=== PATIENT | male | born 1950 | race Hispanic/Latino ===

== ENCOUNTER → 2018-05-29 | Outpatient (CLI) | payer MEDICARE ==
[~2018-05-29] MED LIST: FOLIC ACID1 MG PO; HUMIRA40 MG/0.8 SC; METHOTREXATE2.5 MG PO; PREDNISONE10 MG PO; PREDNISONE5 MG PO; ULTRAM 50MG50 MG PO; VITAMIN D31000 UNI1 PO
--- NOTE | 2018-05-29 16:36 | Diagnostic Imaging Report ---
EXAM: CT Chest WITHOUT contrast INDICATION: \[id number] \[id number] \S\SMOKER COMPARISON: None TECHNIQUE: Chest was scanned utilizing a multidetector helical scanner from the lung apex through the level of the adrenal glands without administration of IV contrast. Absence of intravenous contrast decreases sensitivity for detection of lymphadenopathy and vascular pathology. Coronal and sagittal reformations were obtained. Routine protocol was performed. IV CONTRAST: None COMPLICATIONS: None RADIATION DOSE: Total DLP: 503.68 mGy*cm Estimated effective dose: (DLP x 0.014 x size factor) mSv CTDIvol has been reviewed. It is below the limits set by the Radiation Protocol Committee (RPC). FINDINGS: LINES/ TUBES: None. LUNGS AND AIRWAYS: The lungs are unremarkable. Bibasilar atelectasis/scarring. 3 mm right middle lobe nodule (series 3, image 101). Airways are normal. PLEURA: The pleural spaces are clear. HEART AND MEDIASTINUM: The thyroid gland is heterogeneous. No mediastinal, hilar or axillary lymphadenopathy. Multiple predominantly subcentimeter nonspecific mediastinal lymph nodes are visualized, the largest in the right paratracheal region measures 1.1 cm (series 2, image 40). There are also subcentimeter nonspecific bilateral axillary lymph nodes. The heart is normal in size.. There is no pericardial effusion. Mild atherosclerotic calcification of aorta and coronary arteries. Main pulmonary artery measures 3 cm. UPPER ABDOMEN: Left hepatic lobe calcified granuloma and 1.3 cm hypodensity, which cannot be fully characterized on this unenhanced study. BONES: Posterior left second rib sclerotic focus (series 2, image 13), likely a bone island. Degenerative changes of thoracic spine. SOFT TISSUES: Unremarkable. IMPRESSION: 1. 3 mm right middle lobe nodule. Recommend follow-up in 12 months to ensure stability, considering history of smoking. 2. Left hepatic lobe hypodensity is probably a cyst. If clinically indicated, right upper quadrant ultrasound can be obtained to confirm. 3. Heterogeneous thyroid gland with possible underlying nodularity can be further assessed with thyroid ultrasound. Signed by: Dr. Abdullahi Harvey MD on 05/29/2018 4:33 PM
== END ==
LOC: RAD 12:55
PROVIDERS: ATTEND Family Medicine
DX: F17.210 Nicotine dependence, cigarettes, uncomplicated (principal); R91.8 Other nonspecific abnormal finding of lung field
CPT/HCPCS: 71250

== ENCOUNTER → 2020-04-10 | Outpatient (CLI) | payer MEDICARE ==
--- NOTE | 2020-04-10 10:25 | Diagnostic Imaging Report ---
EXAM: CT Chest WITHOUT contrast INDICATION: ^SMOKER COMPARISON: 05/29/2008. TECHNIQUE: Chest was scanned utilizing a multidetector helical scanner from the lung apex through the level of the adrenal glands without administration of IV contrast. Absence of intravenous contrast decreases sensitivity for detection of lymphadenopathy and vascular pathology. Coronal and sagittal reformations were obtained. Routine protocol was performed. IV CONTRAST: None COMPLICATIONS: None RADIATION DOSE: Total DLP: 577 mGy*cm Estimated effective dose: (DLP x 0.014 x size factor) mSv CTDIvol has been reviewed. It is below the limits set by the Radiation Protocol Committee (RPC). Dose modulation, iterative reconstruction, and/or weight based adjustment of the mA/kV was utilized to reduce the radiation dose to as low as reasonably achievable. FINDINGS: LINES/ TUBES: None. LUNGS AND AIRWAYS: Scattered lung scarring is unchanged when compared to the previous study from 2017. Small right middle lobe noncalcified nodules, largest 3 mm (image 96), are unchanged. No new or concerning pulmonary mass, nodule, or consolidation. PLEURA: The pleural spaces are clear. HEART AND MEDIASTINUM: Ectasia and tortuosity of the great vessels and thoracic aorta are unchanged. The thyroid gland is mildly enlarged and heterogeneous. Unchanged 1.1 cm right paratracheal lymph node. Unchanged vascular calcifications. UPPER ABDOMEN: No concerning abnormality. Unchanged left hepatic lobe cyst. BONES: No acute osseous abnormality. SOFT TISSUES: Unremarkable. IMPRESSION: No interval changes when compared to the previous study from 05/29/2018. No acute thoracic abnormality. Signed by: Jayesh Rahman MD on 04/10/2020 10:21 AM
== END ==
LOC: CT 09:47
PROVIDERS: ATTEND Family Medicine
DX: F17.210 Nicotine dependence, cigarettes, uncomplicated (principal)
CPT/HCPCS: 71250